=== PATIENT | female | born 1985 | race Caucasian/White ===

== ENCOUNTER 2022-10-03 15:31 | Observation (INO) | payer OTHER ==
[~2022-10-03] VITALS: Ht 149.9 cm; Wt 63.5 kg
[2022-10-03 16:01] LABS: BASOPHILS # (AUTO) 0.1 (0.0-0.1); BASOPHILS % 0.6 % (0.0-1.0); EOSINOPHILS # (AUTO) 0.2 (0.0-0.4); EOSINOPHILS % 1.7 % (0.0-6.0); HEMOGLOBIN 15.6 g/dL (12.0-16.0); LYMPHOCYTES # (AUTO) 3.4 (1.0-3.2); LYMPHOCYTES % 31.6 % (18.0-39.1); MEAN CORPUSCULAR HEMOGLOBIN 35.2 pg (28-32); MEAN CORPUSCULAR HGB CONC 35.5 g/dL (31-35); MEAN CORPUSCULAR VOLUME 99.3 fL (81-99); MONOCYTES # (AUTO) 0.7 (0.2-0.8); MONOCYTES % 6.5 % (4.4-11.3); NEUTROPHILS # (AUTO) 6.4 (2.1-6.9); NEUTROPHILS % 59.2 % (38.7-80.0); PLATELET COUNT 228 x10e3/uL (140-360); RED BLOOD COUNT 4.43 x10e6/uL (3.6-5.1); RED CELL DISTRIBUTION WIDTH 13.2 % (11.7-14.4)
[2022-10-03 16:25] LABS: ALBUMIN 3.9 g/dL (3.5-5.0); ALBUMIN/GLOBULIN RATIO 1.2 (0.8-2.0); CALCIUM 9.9 mg/dL (8.4-10.2); CREATININE, SERUM 0.88 mg/dL (0.57-1.11)
[2022-10-03] MEDS ORDERED: ASPIRIN 81 MG CHEW TAB PO ONE ×2 (17:00→18:00)
[2022-10-03] MEDS ORDERED: IOPAMIDOL 370 MG/ML 100 ML INFUS..BTL INJ ONE (17:37)
[2022-10-03] MEDS ORDERED: SODIUM CHLORIDE 0.9% 100 ML ONE (17:37)
[2022-10-03] MEDS ORDERED: ACETAMINOPHEN 325 MG TAB PO PRN (18:15)
[2022-10-03 20:30] VITALS: PULSE 66; RESP 20; O2SAT 99
[2022-10-03] MEDS ORDERED: CETIRIZINE HCL10 MG PO (22:00)
[2022-10-03] MEDS ORDERED: FLUTICASONE PRO16 GM (22:00)
[2022-10-03] MEDS ORDERED: VALACYCLOVIR1000 MG PO (22:00)
[2022-10-03] MEDS ORDERED: DOXYCYCLINE HY100 MG PO (22:00)
[2022-10-03 22:09] VITALS: BP 116/85; PULSE 71; RESP 17; TEMP 98.1; O2SAT 97
[2022-10-03 22:20] VITALS: BP 116/85; PULSE 71; RESP 17; TEMP 98.1; O2SAT 97
[2022-10-04 04:41] VITALS: BP 118/84; PULSE 75; RESP 18; TEMP 98.4; O2SAT 97
[2022-10-04 04:51] LABS: BASOPHILS # (AUTO) 0.1 (0.0-0.1); BASOPHILS % 0.7 % (0.0-1.0); EOSINOPHILS # (AUTO) 0.2 (0.0-0.4); EOSINOPHILS % 2.6 % (0.0-6.0); HEMATOCRIT 41.1 % (34.2-44.1); HEMOGLOBIN 13.9 g/dL (12.0-16.0); LYMPHOCYTES # (AUTO) 3.6 (1.0-3.2); LYMPHOCYTES % 38.6 % (18.0-39.1); MEAN CORPUSCULAR HEMOGLOBIN 34.7 pg (28-32); MEAN CORPUSCULAR HGB CONC 33.8 g/dL (31-35); MEAN CORPUSCULAR VOLUME 102.5 fL (81-99); MONOCYTES # (AUTO) 0.7 (0.2-0.8); MONOCYTES % 7.5 % (4.4-11.3); NEUTROPHILS # (AUTO) 4.7 (2.1-6.9); NEUTROPHILS % 50.2 % (38.7-80.0); PLATELET COUNT 196 x10e3/uL (140-360); RED BLOOD COUNT 4.01 x10e6/uL (3.6-5.1); RED CELL DISTRIBUTION WIDTH 13.2 % (11.7-14.4)
[2022-10-04 05:09] LABS: ANION GAP 12.9 mmol/L (8-16); CALCIUM 8.9 mg/dL (8.4-10.2); CREATININE, SERUM 0.78 mg/dL (0.57-1.11); POTASSIUM 3.9 mmol/L (3.5-5.1)
[2022-10-04 06:20] VITALS: PULSE 82; RESP 20; O2SAT 98
[2022-10-04] MEDS ORDERED: METOPROLOL TARTRATE INJ 1 MG/ML VIAL IV PRN (06:30)
[2022-10-04] MEDS ORDERED: ACETAMINOPHEN 325 MG TAB PO PRN (06:30)
[2022-10-04] MEDS ORDERED: DOCUSATE SODIUM 100 MG CAP PO PRN (06:30)
[2022-10-04] MEDS ORDERED: SIMETHICONE 80 MG CHEW PO PRN (06:30)
[2022-10-04] MEDS ORDERED: MELATONIN 3 MG TAB PO PRN (06:30)
[2022-10-04] MEDS ORDERED: ONDANSETRON HCL INJ 2MG/ML 2ML 2 MG/ML VIAL IV PRN (06:30)
[2022-10-04 06:55] LABS: CHOL/HDL RATIO 7.2 (3.0-3.6)
[2022-10-04] MEDS ORDERED: FAMOTIDINE 20 MG TAB PO SCH (07:30)
[2022-10-04 07:48] VITALS: BP 114/80; PULSE 75; RESP 18; TEMP 98; O2SAT 96
[2022-10-04] MEDS ORDERED: ASPIRIN 81 MG ENTERIC COATED PO SCH (09:00)
[2022-10-04] MEDS ORDERED: LORATADINE 10 MG TAB PO SCH (09:00)
[2022-10-04] MEDS ORDERED: FLUTICASONE PROPIONATE NASAL SPRAY NS SCH (09:00)
[2022-10-04 09:38] VITALS: BP 114/80; PULSE 75; RESP 18; TEMP 98; O2SAT 96
[2022-10-04] MEDS ORDERED: FENOFIBRATE145 MG PO (13:12)
[2022-10-04] MEDS ORDERED: LIPITOR20 MG PO (13:12)
[2022-10-04] MEDS ORDERED: ASPIRIN EC81 MG PO (13:12)
[2022-10-04] MEDS ORDERED: ATORVASTATIN 20 MG TAB PO SCH (21:00)
== END 2022-10-04 11:20 | disposition home or self-care (01) ==
LOC: ER 15:35 → ERHOLD 17:53 → MED/SURG 21:01
PROVIDERS: ADMIT Internal Medicine; ATTEND Internal Medicine
DX: R20.0 Anesthesia of skin (principal); R07.89 Other chest pain; E78.1 Pure hyperglyceridemia; F17.200 Nicotine dependence, unspecified, uncomplicated; Z11.52 Encounter for screening for COVID-19; Z79.899 Other long term (current) drug therapy
CPT/HCPCS: 36415 ×2; 70496; 70498; 71045; 80048; 80053; 80061; 82550 ×2; 84484 ×2; 85025 ×2; 93005; 94799 ×2; 99284; G0378 ×2; J7050; Q9967; U0002